=== PATIENT | male | born 1935 | race Caucasian/White ===

== ENCOUNTER 2017-04-13 19:00 | Emergency (ER) | payer OTHER ==
[~2017-04-13] VITALS: Ht 193 cm; Wt 108.9 kg
[~2017-04-13 19:00] MED LIST: ADVIL PM 38 MG-1 TAB PO; ASPIRIN EC81 M1 PO; ATENOLOL25 MG PO; CLOPIDOGREL75 M1 PO; COQ10 IN OIL 101 SGL PO; EDTA PO; MOTRIN 400MG (400 MG PO; PRINIVIL 5MG5 MG PO; VICODIN5-300 PO; VITAMIN D32000 I1 PO
--- NOTE | 2017-04-13 20:56 | RADIOLOGY REPORT ---
EXAMINATION: RIGHT KNEE 3 VIEWS CLINICAL INFORMATION: Right knee pain after fall. COMPARISON: None. TECHNIQUE: AP, lateral, oblique views of the right knee were obtained. FINDINGS: There are no fractures or dislocations. There is a small knee joint effusion. There is no significant soft tissue swelling. There is mild tibial spine spurring. There is mild superior patellar spurring. There are scattered vascular calcifications. IMPRESSION: Small knee joint effusion. No acute fracture.
--- NOTE | 2017-04-13 20:57 | RADIOLOGY REPORT ---
EXAMINATION: SHOULDER 3 VIEWS, RIGHT CLINICAL INFORMATION: Right shoulder pain. COMPARISON: None. TECHNIQUE: AP views of the right shoulder were obtained in internal and external rotation. In addition, a Y view was obtained. FINDINGS: There are no fractures or dislocations. The humeral head is seated within a well-formed glenoid. There is age-appropriate degenerative change to the right AC joint. The AC joint is intact. IMPRESSION: No evidence for acute injury to the right shoulder.
--- NOTE | 2017-04-13 21:37 | ED MVC/FALL/TRAUMA COMPLAINT ---
History of Present Illness General Chief Complaint: Fall Stated Complaint: FALL,RT LEG/SHOULDER INJ Source: patient Exam Limitations: no limitations Vital Signs & Intake/Output Vital Signs & Intake/Output Vital Signs Date Time Temp Pulse Resp B/P B/P Pulse O2 O2 Flow FiO2 Mean Ox Delivery Rate 04/13 2237 97.5 68 18 142/80 98 Room Air Room Air 04/134 97.7 65 16 166/82 97 Room Air ED Intake and Output 04/14 0000 04/13 1200 Intake Total Output Total Balance Patient 240 lb Weight Weight Reported by Patient Measurement Method Allergies Coded Allergies: NO KNOWN ALLERGIES (04/13/17) Reconcile Medications Aspirin (Ecotrin*) 81 MG TABLET.DR 1 TAB PO DAILY HEART/BLOOD (Reported) Atenolol 25 MG TABLET 1 TAB PO DAILY BP (Reported) Clopidogrel Bisulfate (Clopidogrel) 75 MG TABLET 1 TAB PO DAILY BLOOD THINNER (Reported) Lisinopril 5 MG TABLET 1 TAB PO DAILY BP (Reported) Multivitamin (Multi-Day Vitamins) 1 EACH TABLET 1 TAB PO DAILY SUPPLEMENT ( Reported) Ubidecarenone (Co Q-10) (Unknown Strength) CAPSULE (Unknown Dose) PO DAILY SUPPLEMENT (Reported) Triage Note: PT REPORTS TO HAVE HAVE FALLING TODAY WHILE WORKIGN IN THE YARD. SEVERAL ABRASIONS APPRECIATED TO THE RIGHT KNEE. HE REPORTS PAIN ON THE RIGHT KNEE AND RIGHT SHOULDER. Triage Nurses Notes Reviewed? yes Onset: Abrupt Duration: hour(s): Timing: single episode today Severity: moderate Injuries/Fall Location: upper extremity, right knee Method of Injury: fall Loss of Consciousness: no loss of consciousness Modifying Factors: Improves With: rest. Worsens With: movement. Associated Symptoms: abrasions on right knee HPI: 81 yo gentleman fell off a ledge while doing yardwork, landed on his right shoulder and right knee. He notes that he did not hit his head, has no headache, did not lose consciousness. He has no neck or back pain. He notes pain with passive range of motion of his right shoulder as well as swelling of his right knee with abrasions. Past History Travel History Traveled to [place] past 21 day No Medical History Any Pertinent Medical History? see below for history Cardiovascular: 5 STENTS PLACED Surgical History Surgical History: none Psychosocial History What is your primary language Indian Tobacco Use: Never used Family History Hx Contributory? No Review of Systems Review of Systems Constitutional: Reports: no symptoms. Eyes: Reports: no symptoms. Ears, Nose, Throat, Mouth: Reports: no symptoms. Respiratory: Reports: no symptoms. Cardiovascular: Reports: no symptoms. Gastrointestinal/Abdominal: Reports: no symptoms. Genitourinary: Reports: no symptoms. Musculoskeletal: Reports: no symptoms. Skin: Reports: no symptoms. Neurological/Psychological: Reports: no symptoms. All Other Systems: Reviewed and Negative Physical Exam Physical Exam General Appearance: well developed/nourished, mild distress Head: atraumatic, normal appearance Eyes: Bilateral: normal appearance, PERRL, EOMI. Ears, Nose, Throat, Mouth: hearing grossly normal, moist mucous membrane Neck: normal inspection, supple, full range of motion, normal alignment Respiratory: normal breath sounds, chest non-tender, no respiratory distress, quiet respiration Cardiovascular: regular rate/rhythm Gastrointestinal: normal bowel sounds, soft, non-tender, no organomegaly Back: normal inspection, normal range of motion, no vertebral tenderness Extremities: right shoulder with diffuse muscle spasm. pain elicited with passive ROM, right knee with abrasions, mildly tender to palpation. no deformity. Neurologic/Psych: no motor/sensory deficits, awake, alert, oriented x 3 Skin: intact, normal color, warm/dry Core Measures ACS in differential dx? No Severe Sepsis Present: No Septic Shock Present: No Progress Differential Diagnosis: abrasion vs fx vs contusion Plan of Care: Current Medications Sig/Mariam Start time Last Medication Dose Stop Time Status Admin Tetanus/Diphtheria 0.5 ML ONCE ONE 04/13 2145 AC Toxoids Adsorbed 04/13 2146 ([facility]) Diagnostic Imaging: Viewed by Me: Radiology Read. Discussed w/RAD: Radiology Read. Radiology Impression: right shoulder... no fx. , right knee... small effusion... no fx Comments: PATIENT: AL ROSENBERG PRESENT AGE: 81 PATIENT ACCOUNT NO: [id number] : 34 LOCATION: [facility] ORDERING PHYSICIAN: DEJA ZARATE DO (TBS) SERVICE DATE: 04/13/17 EXAM TYPE: RAD - XRY-KNEE, RIGHT EXAMINATION: RIGHT KNEE 3 VIEWS CLINICAL INFORMATION: Right knee pain after fall. COMPARISON: None. TECHNIQUE: AP, lateral, oblique views of the right knee were obtained. FINDINGS: There are no fractures or dislocations. There is a small knee joint effusion. There is no significant soft tissue swelling. There is mild tibial spine spurring. There is mild superior patellar spurring. There are scattered vascular calcifications. IMPRESSION: Small knee joint effusion. No acute fracture. DICTATED BY: NIRMAL GUTHRIE MD DATE/TIME DICTATED:04/13/172051 DAIRY PROCESSING SUPERVISOR:OMERO DATE/TIME TRANSCRIBED:04/13/172051 CONFIDENTIAL, DO NOT COPY WITHOUT APPROPRIATE AUTHORIZATION. <Electronically signed in Other Vendor System> SIGNED BY: NIRMAL GUTHRIE MD 04/13/172055 PATIENT: AL ROSENBERG PRESENT AGE: 81 PATIENT ACCOUNT NO: [id number] : 34 LOCATION: [facility] ORDERING PHYSICIAN: DEJA ZARATE DO (TBS) SERVICE DATE: 04/13/17 EXAM TYPE: RAD - XRY-SHOULDER COMPLETE-RIGHT EXAMINATION: SHOULDER 3 VIEWS, RIGHT CLINICAL INFORMATION: Right shoulder pain. COMPARISON: None. TECHNIQUE: AP views of the right shoulder were obtained in internal and external rotation. In addition, a Y view was obtained. FINDINGS: There are no fractures or dislocations. The humeral head is seated within a well-formed glenoid. There is age-appropriate degenerative change to the right AC joint. The AC joint is intact. IMPRESSION: No evidence for acute injury to the right shoulder. DICTATED BY: NIRMAL GUTHRIE MD DATE/TIME DICTATED:04/13/172052 DAIRY PROCESSING SUPERVISOR:OMERO DATE/TIME TRANSCRIBED:04/13/172052 CONFIDENTIAL, DO NOT COPY WITHOUT APPROPRIATE AUTHORIZATION. <Electronically signed in Other Vendor System> SIGNED BY: NIRMAL GUTHRIE MD 04/13/172056 Departure Departure Disposition: HOME OR SELF CARE Condition: Stable Clinical Impression Primary Impression: Sprain of right shoulder Secondary Impressions: Abrasions of multiple sites, Contusion of right knee Referrals: NIRMAL LUI MD (PCP/Family) Departure Forms: Customer Survey General Discharge Information Comments well appearing in ED... no fx on xrays. no head injury/neck pain. well appearing at discharge
[2017-04-13] MEDS ORDERED: LISINOPRIL5 M1 PO (21:44)
[2017-04-13] MEDS ORDERED: ATENOLOL25 M1 PO (21:44)
[2017-04-13] MEDS ORDERED: MULTI-DAY VITA1 EACH PO (21:45)
[2017-04-13] MEDS ORDERED: CO Q-10200 MG PO (21:45)
[2017-04-13 22:37] VITALS: BP 142/80
== END 2017-04-13 22:38 ==
LOC: ERH 19:00
DX: S43.401A Unspecified sprain of right shoulder joint, initial encounter (principal); T14.8 Other injury of unspecified body region; S80.01XA Contusion of right knee, initial encounter; W17.89XA Other fall from one level to another, initial encounter; Y93.H9 Activity, other involving exterior property and land maintenance, building and construction; Y92.009 Unspecified place in unspecified non-institutional (private) residence as the place of occurrence of the external cause
CPT/HCPCS: 73030-RT; 73560-RT; 90471; 90714